=== PATIENT | male | born 1955 | race Caucasian/White ===

== ENCOUNTER 2019-08-27 06:59 | Emergency (ER) | payer OTHER ==
[2019-08-27] MEDS ORDERED: ASPIRIN 81 MG CHEWABLE TABLETS ONE (07:13)
[2019-08-27] MEDS ORDERED: CLOPIDOGREL BISULFATE 300 MG TABLET ONE ×2 (07:14→07:58)
[2019-08-27] MEDS ORDERED: HEPARIN INFUSION - 25,000 UNITS/500 ML INFUS.BAG IVPB ONE (07:14)
[2019-08-27] MEDS ORDERED: ASPIRIN 81 MG CHEWABLE TABLETS PO ONE ×2 (07:15→07:47)
[2019-08-27] MEDS ORDERED: HEPARIN NA (PORCINE) 5,000 UNITS/ML 1ML VIAL IVPUSH ONE (07:23)
[2019-08-27 07:24] VITALS: TEMP 98; BMI 29.1
[2019-08-27] MEDS ORDERED: NITROGLYCERIN SUBLINGUAL 1/150 0.4 MG TAB SL ONE (07:27)
[2019-08-27] MEDS ORDERED: NITROGLYCERIN SUBLINGUAL 1/150 0.4 MG TAB ONE (07:34)
[2019-08-27] MEDS ORDERED: HEPARIN NA (PORCINE) 5,000 UNITS/ML 1ML VIAL ONE (07:34)
[2019-08-27] MEDS ORDERED: CLOPIDOGREL BISULFATE 300 MG TABLET PO ONE ×2 (07:47→07:56)
[2019-08-27 07:55] VITALS: BP 108/76; PULSE 78
[2019-08-27] MEDS ORDERED: HEPARIN - 25,000 UNIT in SODIUM CHLORIDE 495 ML IV SCH (08:00)
--- NOTE | 2019-08-27 08:08 | PDOC ---
History of Present Illness - General Chief Complaint: Chest Pain Stated Complaint: CHEST/JAW PAIN Time Seen by Provider: 08/27/19 07:14 History Source: Patient, Family Exam Limitations: No Limitations - History of Present Illness Initial Comments: 08/27/19 08:02 CC: Chest pain since 0430 HPI: Awoke from sleep this am with SSCP radiating up to the jaw, onset around 0430, took naprosyn without relief symptoms persisted so came to ER at 0700 mild diaphoresis no sob PMH: dm on metformin former smoker, quit 3 months ago no htn ROS: only chest pain, jaw pain no pulm, neuro, GI or other symptoms 12 systems reviewed, has RA on weekly methotrexate, last dose Thursday Past History - Past Medical History Allergies/Adverse Reactions: Allergies Allergy/AdvReac Type Severity Reaction Status Date / Time No Known Allergies Allergy Verified 08/27/19 07:46 Home Medications: Ambulatory Orders Naproxen [Naprosyn] 500 mg PO DAILY PRN 11/26/11 Metformin HCl [Glucophage] 500 mg PO BID 08/27/19 Methotrexate Sodium [Methotrexate] 20 mg PO WEEKLY 08/27/19 COPD: No Diabetes: Yes Other medical history: RHEUMATOID ARTHRITIS - Immunization History Td Vaccination: Yes TDAP Vaccination: Yes Immunization Up to Date: Yes - Psycho Social/Smoking Cessation Hx Smoking Status: No Smoking History: Former smoker Years of Tobacco Use: 0 Have you smoked in the past 12 months: Yes Number of Cigarettes Smoked Daily: 15 If you are a former smoker, when did you quit?: 15 Cigars Per Day: 0 Information on smoking cessation initiated: Yes Hx Alcohol Use: No Drug/Substance Use Hx: No Substance Use Type: None *Physical Exam - Vital Signs Last Vital Signs Temp Pulse Resp BP Pulse Ox 98 F 78 14 108/76 97 08/27/19 07:42 08/27/19 07:54 08/27/19 07:54 08/27/19 07:54 08/27/19 07:54 - Physical Exam Comments: 08/27/19 08:09 A and O x 3, mild chest and jaw pain PERRL OP clear neck no JVD or masses chest clear heart RR Nl S1S2 no M abd soft NT extrem nl neuro normal MS, CN, motor, sensory skin mild clammy Heart Score/ECG Review - ECG Impressions Comment:: 08/27/19 08:12 EKG #1 NSR @53, STEMI inferolateral leads EKG #2 post meds, SB @ 57, STEMI resolved, nl axis, nl intervals, no STT Wave changes ED Treatment Course - RADIOLOGY Radiology Studies Ordered: Category Date Time Status CHEST X-RAY PORTABLE* [RAD] Stat Radiology 08/27/19 07:21 Ordered - Medications Given in the ED: ED Medications Discontinued Medications Generic Name Dose Route Start Last Admin Trade Name Freq PRN Reason Stop Dose Admin Aspirin 162 mg 08/27/19 07:15 08/27/19 07:50 Asa - PO 08/27/19 07:16 Not Given ONCE ONE Aspirin 324 mg 08/27/19 07:47 08/27/19 07:05 Asa - PO 08/27/19 07:48 324 mg ONCE ONE Administration Clopidogrel Bisulfate 300 mg 08/27/19 07:47 08/27/19 07:05 Plavix - PO 08/27/19 07:48 300 mg ONCE ONE Administration Clopidogrel Bisulfate 300 mg 08/27/19 07:56 08/27/19 07:59 Plavix - PO 08/27/19 07:57 300 mg ONCE ONE Administration Heparin Sodium (Porcine) 4,000 unit 08/27/19 07:23 08/27/19 07:40 Heparin - IVPUSH 08/27/19 07:24 4,000 unit ONCE ONE Administration Nitroglycerin 0.4 mg 08/27/19 07:27 08/27/19 07:35 Nitrostat - SL 08/27/19 07:28 0.4 mg ONCE ONE Administration Medical Decision Making - Medical Decision Making 08/27/19 08:14 Hx of risk factors with classic SSCP to jaw since 429 12 lead with inferolateral STEMI given meds and reperfused with repeat 12 lead EKG showing resolution of STEMI changes, reperfusion with meds alone Meds given: ASA 324 chewed Plavix 300 mg x2 = 600 total Heparin 4000 unit bolus, 1000 per hour infusion NTG 0.4 sl O2 sat was 100% initially but down to 94% and O2 2 liters NC started, sat up to 97% Assess: ACS with STEMI, reperfused with meds, for stat transfer to [facility], Dr. Magaña cardiology at [facility] accepting, Dr. Garrett ED accepting [email or web address] with heparin at 1000/hr to continue Discharge - Discharge Information Problems reviewed: Yes Clinical Impression/Diagnosis: STEMI (ST elevation myocardial infarction) Qualifiers: Involved coronary artery: unspecified coronary artery Qualified Code(s): I21.3 - ST elevation (STEMI) myocardial infarction of unspecified site Condition: Guarded - Follow up/Referral Referrals: Leonidas Dc MD [Primary Care Provider] - - Patient Discharge Instructions - Post Discharge Activity - Transfer to Acute Care Facility Receiving Facility Name: [facility] (endorsed to accepting MD Magaña, EKGs faxed) Accepting Physician:: [facility]me[facility] cardiology
[2019-08-27 08:23] LABS: BASO % 0.6 % (0-2.0); EOS % 5.2 % (0-4.5); HEMOGLOBIN 15.8 GM/dl (11.7-16.9); LYMPH % 19.6 % (8-40); MCH 32.2 pg (25.7-33.7); MCHC 33.7 g/dl (32.0-35.9); MEAN CELL VOLUME 95.6 fl (80-96); MEAN PLT VOLUME 8.8 fl (7.5-11.1); MONO % 9.7 % (3.8-10.2); NEUT % 64.9 % (42.8-82.8); PLATELET COUNT 251 K/MM3 (134-434); RBC 4.92 M/mm3 (4.00-5.60); RDW 14.1 % (11.9-15.9); WHITE BLOOD COUNT 6.9 K/mm3 (4.0-10.8)
[2019-08-27 08:31] LABS: ALBUMIN 4.3 g/dl (3.4-5.0); BILIRUBIN,TOTAL 0.8 mg/dl (0.2-1); CALCIUM 9.3 mg/dl (8.5-10); MAGNESIUM 2.3 mg/dL (1.8-2.4); POTASSIUM 4.9 mmol/L (3.5-5.1); TOT PROT 6.7 g/dl (6.4-8.2)
[2019-08-27 08:37] LABS: INR 1.01 (0.82-1.09); PROTHROMBIN TIME (PATIENT) 11.3 SEC (10.2-13.0)
--- NOTE | 2019-08-27 20:12 | EKG ---
Test Reason : Blood Pressure : / mmHG Vent. Rate : 057 BPM Atrial Rate : 057 BPM P-R Int : 132 ms QRS Dur : 078 ms QT Int : 448 ms P-R-T Axes : -01 006 027 degrees QTc Int : 436 ms SINUS BRADYCARDIA OTHERWISE NORMAL ECG WHEN COMPARED WITH ECG OF 27-AUG-2019 07:10, QRS DURATION HAS DECREASED ST NO LONGER ELEVATED IN INFERIOR LEADS ST LESS DEPRESSED IN ANTERIOR LEADS Confirmed by MD CHERISE, WYATT ([id number]) on 08/27/2019 8:12:12 PM Referred By: JUNG FIELD Confirmed By:WYATT LUONG MD
--- NOTE | 2019-08-27 20:12 | EKG ---
Test Reason : Blood Pressure : / mmHG Vent. Rate : 053 BPM Atrial Rate : 053 BPM P-R Int : 142 ms QRS Dur : 104 ms QT Int : 440 ms P-R-T Axes : 049 034 045 degrees QTc Int : 412 ms SINUS BRADYCARDIA WITH SINUS ARRHYTHMIA ST ELEVATION CONSIDER INFERIOR INJURY OR ACUTE INFARCT ACUTE DC / STEMI ABNORMAL ECG NO PREVIOUS ECGS AVAILABLE Confirmed by MD CHERISE, WYATT ([id number]) on 08/27/2019 8:12:26 PM Referred By: MACKENZIE HOLLINS Confirmed By:WYATT LUONG MD
== END 2019-08-27 08:40 | disposition short-term general hospital (02) ==
LOC: FER 06:59
PROC: 3E033GC Introduction of Other Therapeutic Substance into Peripheral Vein, Percutaneous Approach (ICD-10-PCS; principal; 2019-08-27)
DX: I21.3 ST elevation (STEMI) myocardial infarction of unspecified site (principal); E11.9 Type 2 diabetes mellitus without complications; Z87.891 Personal history of nicotine dependence; M06.9 Rheumatoid arthritis, unspecified
CPT/HCPCS: 36415; 71045-TC-FY; 80053; 83735; 84484; 85025; 85610; 85730; 93005; 99285-25; J1644

== ENCOUNTER 2019-09-22 14:39 | Emergency (ER) | payer OTHER ==
[2019-09-22 15:08] VITALS: BP 128/71; PULSE 84; TEMP 97.7; BMI 27.5
--- NOTE | 2019-09-22 15:15 | PDOC ---
History of Present Illness - General Chief Complaint: Injury Stated Complaint: TRIP AND FALL LACERATION LEFT FOREHEAD AND LEFT CH Time Seen by Provider: 09/22/19 15:03 History Source: Patient Exam Limitations: No Limitations - History of Present Illness Initial Comments: 64 year old male with PMH HTN, HLD, LA x3 weeks ago s/p 4 stents, DM, RA presented to ED for facial laceration s/p fall today. Pt reported he accidentally stepped in a hole covered by leaves, causing him to fall forward onto the ground, striking his head. He denied LOC/vomiting, chest pain, shortness of breath. ROS General: denied fever, chills, generalized weakness. HEENT: denied sore throat, rhinorrhea, ear pain. Cardiovascular: denied chest pain, palpitations, syncope, diaphoresis. Respiratory: denied shortness of breath, cough, sputum production, hemoptysis. Gastrointestinal: denied abdominal pain, nausea, vomiting, diarrhea, constipation, blood in stool. Genitourinary: denied dysuria, increased urinary frequency, hematuria, urinary incontinence, flank pain. Back: denied back pain. Musculoskeletal: denied joint pain, muscle pain, joint swelling. Neurological: admitted to headache. denied dizziness, numbness, tingling, weakness. Integumentary: admitted to laceration, abrasion. denied rash. Hematologic/Lymphatic: denied bruising or bleeding. PE Constitutional: Well-nourished, Well-developed, appearing stated age. Airway: intact Breathing: bilateral breath sounds Circulation: 2+ carotid pulse B/L HEENT: 4 cm horizontal linear laceration to supraorbital left area just above the eyebrow. abrasion to left infraorbital area. No facial bones tenderness to palpation. No christensen sign. No raccoon eyes. EOMI. PERRLA. Neck: supple. Full ROM. no midline c-spine tenderness to palpation. No step offs. Cardiovascular: regular heart rhythm. no murmurs. no pericardial friction rub. Chest wall: no tenderness to palpation of anterior chest wall. No deformity to anterior chest wall. Respiratory: clear to auscultation bilaterally. no crackles, rhonchi or wheezing. no stridor. Gastrointestinal: soft, nontender. normal bowel sounds. no rebound, guarding, masses. No ecchymoses. Back: no midline T-spine or L-spine tenderness to palpation. No step offs. Pelvis: lower extremities equal in length without external rotation. No hip tenderness to palpation. Extremities: peripheral pulses intact. no lower extremity edema. Neurological: CN 2-12 grossly intact. moves all four extremities. Psych: awake, alert, oriented x3. follows commands. answers questions appropriately. Past History - Past Medical History Allergies/Adverse Reactions: Allergies Allergy/AdvReac Type Severity Reaction Status Date / Time No Known Allergies Allergy Verified 09/22/19 14:47 Home Medications: Ambulatory Orders Metformin HCl [Glucophage] 500 mg PO BID 08/27/19 Methotrexate Sodium [Methotrexate] 20 mg PO WEEKLY 08/27/19 Aspirin 81 mg PO DAILY 09/22/19 Atorvastatin Ca [Lipitor] 80 mg PO HS 09/22/19 Pantoprazole Sodium [Protonix] 40 mg PO DAILY 09/22/19 Prasugrel HCl 10 mg PO DAILY 09/22/19 COPD: No Diabetes: Yes Other medical history: RHEUMATOID ARTHRITIS - Immunization History Td Vaccination: Yes TDAP Vaccination: Yes Immunization Up to Date: Yes - Psycho Social/Smoking Cessation Hx Smoking Status: No Smoking History: Former smoker Years of Tobacco Use: 0 Have you smoked in the past 12 months: Yes Number of Cigarettes Smoked Daily: 15 If you are a former smoker, when did you quit?: 4 month Cigars Per Day: 0 Information on smoking cessation initiated: No Hx Alcohol Use: Yes (social) Drug/Substance Use Hx: No Substance Use Type: None *Physical Exam - Vital Signs Last Vital Signs Temp Pulse Resp BP Pulse Ox 97.7 F 84 16 128/71 99 09/22/19 14:47 09/22/19 14:47 09/22/19 14:47 09/22/19 14:47 09/22/19 14:47 Procedures - Laceration/Wound Repair Left Face Wound Length: 2.6 to 5.0 cm Wound Explored: clean, no foreign body present Wound's Depth, Shape: superficial Irrigated w/ Saline: Yes Betadine Prep: No Anesthesia: 1% Lidocaine Amount of Anesthetic (ccs): 5 Wound Repaired With: Sutures Suture Size/Type: 6:0 Number of Sutures: 3 Progress: Three 6.0 and six 5.0 sutures placed to wound for a total of 9 sutures. Extra sutures were placed to the lateral portion of the wound for slow oozing, which resolved. Medical Decision Making - Medical Decision Making 64 year old male with above PMH presented to ED for laceration to forehead s/p mechanical fall. Initial Vital Signs Temp Pulse Resp BP Pulse Ox 97.7 F 84 16 128/71 99 09/22/19 14:47 09/22/19 14:47 09/22/19 14:47 09/22/19 14:47 09/22/19 14:47 Afebrile. No tachycardia. No tachypnea. No hypotension. No hypoxia on room air. Labs ordered: none Imaging ordered: CT head, CT cervical spine Medications ordered: tylenol 650 mg PO once 09/22/19 18:00 CT head report: Name: [facility] DEPARTMENT OF RADIOLOGY Phys: Madonna Matos RESIDENT : 1955 Age: 64 Sex: M [facility] Acct: [id number] Loc: [facility] [address] Exam Date: 09/22/19 Status: [place] [address] Unit Number: [id number] EXAM #: TYPE/EXAM: RESULT: [id number] CT/HEAD CT WITHOUT CONTRAST Cranial CT without contrast Clinical information: status post fall No CT evidence of intracranial injury or calvarial fracture. There is no extra-axial fluid collection. No obvious mass lesion or infarct is noted. Involutional changes are seen with minimal ventricular dilatation. There appears to be a left inferior forehead scalp laceration. Correlate clinically. Impression: No CT evidence of acute intracranial pathology. Reported By: Toni Russell MD 09/22/[address] cervical spine report: Name: [facility] DEPARTMENT OF RADIOLOGY Phys: Madonna Matos RESIDENT : 1955 Age: 64 Sex: M [facility] Acct: [id number] Loc: [facility] [address] Exam Date: 09/22/19 Status : [place] [address] Unit Number: [id number] EXAM#: TYPE/EXAM: RESULT: [id number] CT/CERVICAL SPINE CT W/O CONTR Cervical spine CT without contrast Clinical information: fall from standing Multiplanar imaging was performed. No fracture or posttraumatic malalignment is seen. Multilevel degenerative disc and facet joint changes are noted. Moderate to marked L4-L5 and L5-S1 central canal stenosis is seen. The perivertebral soft tissues demonstrate no obvious pathology. Reported By: Toni Russell MD 09/22/19 1513 Laceration repaired with local anesthetic (Lidocaine 1% 5 cc) and a total of 9 sutures (Three 6.0 and Six 5.0). The lateral portion of the wound had a slow ooze, I placed another two sutures (6.0) to that portion, and the oozing stopped. Wound covered with bacitracin and gauze. Abrasion below eye covered with bacitracin. Pt given wound care instructions and return precautions. Pt discharged. Discharge - Discharge Information Problems reviewed: Yes Clinical Impression/Diagnosis: Laceration, Fall, Head injury Condition: Improved Disposition: HOME - Admission No - Follow up/Referral - Patient Discharge Instructions Patient Printed Discharge Instructions: DI for Laceration Repair Additional Instructions: Keep the wound 100% dry and clean for 24 hours, do not remove the dressing. After that period, you may leave the wound open to air, but I would cover it if you will be outside/sweating or it has a chance to get dirty. To clean the wound let the showed run water over the area, you do not need to scrub, you do not need soap. Pat dry. Return to the Emergency Department if you develop redness around the wound, increased swelling, fevers, wound drainage, worsening symptoms, change in sensation/strength, increasing pain despite Tylenol use, chest pain, shortness of breath, numbness, weakness, visual changes, gait changes, weakness, dizziness or any other new, worsening or concerning symptoms. Take Tylenol over the counter for pain. Take as advised on label. Return to the ER or go to your primary care doctor in 7-10 days to have the sutures removed. - Post Discharge Activity Work/Back to School Note: Back to Work
[2019-09-22] MEDS ORDERED: ACETAMINOPHEN 325 MG TABLET (FP) PO ONE (15:32)
[2019-09-22] MEDS ORDERED: ACETAMINOPHEN 325 MG TABLET (FP) ONE (15:33)
--- NOTE | 2019-09-22 15:51 | PDOC ---
Attending Attestation - Resident Resident Name: Madonna Matos - ED Attending Attestation I have performed the following: I have examined & evaluated the patient, The case was reviewed & discussed with the resident, I agree w/resident's findings & plan, Exceptions are as noted - HPI HPI: 09/22/19 15:24 64y hx of RA, htn, hl cad s/p GA several weeks ago Presents status post fall with head injury. Patient was walking and looking over on the side and did not see a hole in the floor that was covered with leaves, He tripped and [place] on his face there was no LOC the patient remembers everything. Patient states that he He may have been able to break the fall with his hands out because he does have some mild tenderness on his right palm and on his left wrist however he states that happened too quickly and does not exactly remember. Patient denies any other injuries including Chest pain, shortness of breath, neck pain, back pain, upper extremity pain, lower extremity pain. Physical exam GENERAL: The patient is awake, alert, and fully oriented, Nontoxic - in no acute distress. HEAD: Normocephalic, 3cm irregular border laceration over lateral border above R eye and abrasion over L cheek EYES: extraocular movements intact, sclera anicteric, conjunctiva clear. ENT: Normal voice, Moist mucous membranes. NECK: Normal range of motion, supple, No focal bony tenderness on the posterior cervical thoracic or lumbar spine. LUNGS: Breath sounds equal, clear to auscultation bilaterally. No wheezes, no rhonchi, no rales. HEART: Regular rate and rhythm, normal S1 and S2 without murmur, rub or gallop. ABDOMEN: Soft, nontender, No guarding, no rebound. No CVA tenderness EXTREMITIES: Normal range of motion, no edema. Abrasion noted on his right pinky. Multiple nontender nonerythematous nonindurated nodules noted on his joints (chornic), No focal bony tenderness along his hands, wrists no pain on axial loading of his index or middle fingers bilaterally, No Scaphoid tenderness bilaterally. NEUROLOGICAL: No facial assymetry, Normal speech, Moving all 4 extremities spontaneously and symmetrically PSYCH: Normal mood, normal affect. SKIN: Warm, Dry, normal turgor, 09/22/19 17:17 CT head to rule out bleed, The patient's scalp laceration will need closure Patient states his tetanus is up-to-date - Physicial Exam PE: 09/23/19 18:16 see above - Medical Decision Making 09/22/19 17:34 CT head was negative for bleed, some stenosis noted in C-spine Will fix patient's laceration 09/22/19 18:[address] matos with good approximation will dc with supportive care pmd fu returnp recautions were dsicussed
== END 2019-09-22 18:29 | disposition home or self-care (01) ==
LOC: FER 14:39
PROC: 0HQ1XZZ Repair Face Skin, External Approach (ICD-10-PCS; principal; 2019-09-22)
DX: S01.81XA Laceration without foreign body of other part of head, initial encounter (principal); W17.89XA Other fall from one level to another, initial encounter; Y93.H2 Activity, gardening and landscaping; Y92.9 Unspecified place or not applicable; I10 Essential (primary) hypertension; E78.5 Hyperlipidemia, unspecified; I25.2 Old myocardial infarction; Z95.5 Presence of coronary angioplasty implant and graft; E11.9 Type 2 diabetes mellitus without complications; M06.9 Rheumatoid arthritis, unspecified; Z79.84 Long term (current) use of oral hypoglycemic drugs; Z87.891 Personal history of nicotine dependence
CPT/HCPCS: 70450-TC; 72125-TC; 99282-25

== ENCOUNTER 2023-07-10 14:24 | Emergency (ER) | payer OTHER ==
[2023-07-10 14:40] VITALS: BP 130/90; PULSE 87; RESP 16; TEMP 97.9; BMI 29.1
[2023-07-10] MEDS ORDERED: ALBUTEROL SO4 2.5/IPRATROPIUM 0.5 INH SOL 3 ML VIAL.NEB. NEB ONE (15:28)
[2023-07-10] MEDS: ALBUTEROL SO4 2.5/IPRATROPIUM 0.5 INH SOL 3 ML VIAL.NEB. NEB SCH ×4 (15:33→16:29)
[2023-07-10] MEDS ORDERED: predniSONE 20 MG TABLET (UD) PO ONE (16:23)
[2023-07-10] MEDS ORDERED: predniSONE 20 MG TABLET (UD) ONE (16:30)
[2023-07-10] MEDS ORDERED: AZITHROMYCIN 250 MG TABLET PO ONE (16:45)
[2023-07-10] MEDS ORDERED: AZITHROMYCIN 500 MG TABLET ONE (17:12)
== END 2023-07-10 17:22 | disposition home or self-care (01) ==
LOC: FER 14:24
PROC: 3E0F7GC Introduction of Other Therapeutic Substance into Respiratory Tract, Via Natural or Artificial Opening (ICD-10-PCS; principal; 2023-07-10)
DX: R05.9 Cough, unspecified (principal); R06.02 Shortness of breath; R06.2 Wheezing; Z20.822 Contact with and (suspected) exposure to COVID-19
CPT/HCPCS: 0241U-QW; 71046-TC-FY; 99284-25